=== PATIENT | male | born 1965 | race Caucasian/White ===

== ENCOUNTER 2019-10-21 18:25 | Emergency (ER) | payer SELFPAY ==
[~2019-10-21] VITALS: Ht 167.6 cm; Wt 79.5 kg
[2019-10-21 18:28] VITALS: BP 133/95
== END 2019-10-21 19:11 | disposition home or self-care (01) ==
LOC: EMS 18:30
DX: R51 Headache (principal); R03.0 Elevated blood-pressure reading, without diagnosis of hypertension